=== PATIENT | female | born 1965 | race Caucasian/White ===

== ENCOUNTER 2017-09-18 06:53 | Emergency (ER) | payer OTHER ==
[2017-09-18] MEDS: HYDROCODONE/APAP (5/325) TAB PO (08:47)
[2017-09-18] MEDS: LIDOCAINE 1% (MDV) 20 ML INJ SC (09:59)
[2017-09-18] MEDS: DIPHTH/TET/ACEL PERTUSS (ADULT) 0.5 ML VIAL IM* (10:00)
[2017-09-18] MEDS: CEFAZOLIN 1 GM INJ IM (10:01)
[2017-09-18] MEDS: IBUPROFEN 800 MG TAB PO (10:54)
== END 2017-09-18 11:04 | disposition home or self-care (01) ==
LOC: FTE 06:53
DX: S61.451A Open bite of right hand, initial encounter (principal); S62.614B Displaced fracture of proximal phalanx of right ring finger, initial encounter for open fracture; W54.0XXA Bitten by dog, initial encounter; Y92.9 Unspecified place or not applicable; Z23 Encounter for immunization
CPT/HCPCS: 29125; 73130-RT; 90471; 90715; 96372; 99284-25

== ENCOUNTER 2017-11-20 11:16 | Emergency (ER) | payer OTHER ==
[2017-11-20] MEDS: IBUPROFEN 600 MG TAB PO (13:49)
[2017-11-20] MEDS: HYDROCODONE/APAP (5/325) TAB PO (13:49)
== END 2017-11-20 14:30 | disposition home or self-care (01) ==
LOC: FTE 11:16
DX: S61.432A Puncture wound without foreign body of left hand, initial encounter (principal); W54.0XXA Bitten by dog, initial encounter; Y92.9 Unspecified place or not applicable; Z87.891 Personal history of nicotine dependence
CPT/HCPCS: 12001; 73130-LT; 99284-25